=== PATIENT | female | born 2000 | race Caucasian/White ===

== ENCOUNTER 2019-01-22 09:50 | Emergency (ER) | payer OTHER ==
[2019-01-22 11:43] LABS: Albumin 4.5 g/dL (3.2-5.2); Albumin/Globulin Ratio 1.7 (1-3); BUN/Creatinine Ratio 14.1 (8-20); Calcium 9.5 mg/dL (8.6-10.3); Globulin 2.6 g/dL (2-4); Potassium 3.9 mmol/L (3.5-5.0); Total Bilirubin 0.5 mg/dL (0.2-1.0); Total Protein 7.1 g/dL (6.4-8.9)
[2019-01-22] MEDS ORDERED: Hepatitis B Immune Globulin* > 312 UNITS/ML 5 ML VIAL IM ONE (14:46)
[2019-01-22 15:08] VITALS: BP 120/91
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
== END 2019-01-22 15:08 | disposition home or self-care (01) ==
LOC: ED 09:50
DX: T74.21XA Adult sexual abuse, confirmed, initial encounter (principal)
CPT/HCPCS: 36415; 80053; 90371; 96372; 99282

== ENCOUNTER 2019-04-29 03:42 | Emergency (ER) | payer OTHER ==
--- OUTSIDE RECORDS SUMMARY | 2019-04-29 03:53 | XMS REPORT | Continuity of Care Document ---
:2000 External Reference #:[id number] Author Name Morales Griffiths M.D. (transmitted by agent of provider Misti Rodrigues ) Address [address] [place] [id number] Problems Description No Information Available Social History Type Date Description Comments Sex Unknown Tobacco Use Start: Unknown Patient has never smoked Smoking Status Reviewed: 03/25/19 Patient has never smoked Allergies, Adverse Reactions, Alerts Description No Known Drug Allergies Medications Description No Active Medications Immunizations Description No Information Available Vital Signs Date Vital Result Comment 03/25/2019 9:39am Height 64 inches 5'4" Weight 129.00 lb Heart Rate 60 /min BP Systolic Sitting 100 mmHg BP Diastolic Sitting 64 mmHg Respiratory Rate 14 /min Body Temperature 97.7 F BMI (Body Mass Index) 22.1 kg/m2 Results Description No Information Available Procedures Description No Information Available Medical Devices Description No Information Available Encounters Description No Information Available Assessments Date Code Description Provider 03/25/2019 Z11.4 Encounter for screening for human Morales Griffiths M.D. immunodeficiency virus [HIV] Plan of Treatment No Information Available Functional Status Description No Information Available Mental Status Description No Information Available Referrals Description No Information Available
[2019-04-29] MEDS ORDERED: Famotidine TAB* 20 MG PO ONE (04:25)
[2019-04-29] MEDS ORDERED: Dexamethasone TAB* 4 MG PO ONE (04:25)
--- NOTE | 2019-04-29 04:43 | ED ---
Allergic Reaction/Systemic - HPI Summary HPI Summary: Pt is a 19 y/o F presenting to the ED with a chief complaint of a possible allergic reaction. She states around 2230/2300 she began experiencing some pruritus on her chest that eventually spread all over her body. It stopped for about 2 hours, and she tried to take an antihistamine without relief. She fell asleep, woke up with some throat tightening, nasal congestion, sinus soreness, and face pruritus, so she came here. She denies SOB, vomiting, or diarrhea. She reports some slight abd pain and some edema/numbness in her lips. - History of Current Complaint Chief Complaint: EDAllergicReaction Time Seen by Provider: 04/29/19 04:17 Hx Obtained From: Patient Onset/Duration: Gradual Onset, Started hours ago, Still Present Timing: Constant, Lasting Hours Severity Initially: Mild Severity Currently: None Pain Intensity: 0 Pain Scale Used: 0-10 Numeric Location: Diffuse Character: Pruritus Aggravating Factor(s): Nothing Alleviating Factor(s): Nothing Associated Signs And Symptoms: Positive: Abdominal Pain, Throat Tightening. Negative: Difficulty Breathing - Related Hx Possible Reaction To: Unknown - Allergies/Home Medications Allergies/Adverse Reactions: Allergies Allergy/AdvReac Type Severity Reaction Status Date / Time egg Allergy Itching Verified 04/29/19 03:47 Home Medications: Home Medications NK [No Home Medications Reported] 04/29/19 [History Confirmed 04/29/19] PMH/Surg Hx/FS Hx/Imm Hx Previously Healthy: Yes Endocrine/Hematology History: Denies: Hx Diabetes Respiratory History: Reports: Hx Asthma Infectious Disease History: No Infectious Disease History: Denies: Traveled Outside the US in Last 30 Days - Family History Known Family History: Negative: Diabetes - Social History Alcohol Use: Occasionally Hx Substance Use: No Substance Use Type: Reports: None Hx Tobacco Use: No Smoking Status (MU): Never Smoked Tobacco Review of Systems Positive: Other - throat tightening, sinus pain, nasal congestion Negative: Shortness Of Breath Positive: Abdominal Pain. Negative: Vomiting, Diarrhea Positive: Edema Positive: Other - pruritus Positive: Numbness All Other Systems Reviewed And Are Negative: Yes Physical Exam - Summary Physical Exam Summary: Constitutional: Well-developed, Well-nourished, Alert. (-) Distressed Skin: Warm, Dry HENT: Normocephalic; Atraumatic Eyes: Conjunctiva normal Neck: Musculoskeletal ROM normal neck. (-) JVD, (-) Stridor, (-) Tracheal deviation Cardio: Rhythm regular, rate normal, Heart sounds normal; Intact distal pulses; Radial pulses are 2+ and symmetric. (-) Murmur Pulmonary/Chest wall: Effort normal. (-) Respiratory distress, (-) Wheezes, (-) Rales Abd: Soft, (-) tenderness, (-) Distension, (-) Guarding, (-) Rebound Musculoskeletal: (-) Edema Lymph: (-) Cervical adenopathy Neuro: Alert, Oriented x3 Psych: Mood and affect Normal Triage Information Reviewed: Yes Vital Signs On Initial Exam: Initial Vitals Temp Pulse Resp BP Pulse Ox 97.5 F 95 15 143/99 99 04/29/19 03:43 04/29/19 03:43 04/29/19 03:43 04/29/19 03:43 04/29/19 03:43 Vital Signs Reviewed: Yes Procedures - Sedation Patient Received Moderate/Deep Sedation with Procedure: No Diagnostics - Vital Signs Vital Signs Temp Pulse Resp BP Pulse Ox 04/29/19 04:01 69 120/76 99 04/29/19 04:00 79 100 04/29/19 03:43 97.5 F 95 15 143/99 99 - Laboratory Lab Statement: Any lab studies that have been ordered have been reviewed, and results considered in the medical decision making process. Allergic Reaction Course/Dx - Course Course Of Treatment: Patient is here with an allergic reaction. Patient felt like her throat is itchy but overall appeared normal. Patient does not have anaphylaxis per physical exam. Patient was given Decadron and Pepcid. Patient was offered Benadryl but declined. Patient is monitored for one hour. Patient was feeling better and wanted to go home even though she was offered further monitoring. - Diagnoses Provider Diagnoses: Allergic reaction Discharge ED - Sign-Out/Discharge Documenting (check all that apply): Patient Departure - Discharge Plan Condition: Stable Disposition: HOME Patient Education Materials: Anaphylaxis (ED) Referrals: [facility] - Gabo ESPOSITO [[employer], [employer], OTHER] - Additional Instructions: Please follow up with [facility] within the next 1-3 days. Take Benadryl for any itching that you might experience. Return to the emergency department with any new or worsening symptoms, such as difficulty breathing. - Billing Disposition and Condition Condition: STABLE Disposition: Home - Attestation Statements Document Initiated by Scribe: Yes Documenting Scribe: Zuleika Messina Provider For Whom Conoribe is Documenting (Include Credential): Lance Amador MD. Scribe Attestation: Zuleika Booth, scribed for Lance Amador MD. on 04/29/19 at 0545. Scribe Documentation Reviewed: Yes Provider Attestation: The documentation as recorded by the conoribe, Zuleika Messina accurately reflects the service I personally performed and the decisions made by , Lance Amador MD. Status of Scribe Document: Viewed
[2019-04-29 05:38] VITALS: BP 117/83
== END 2019-04-29 05:39 | disposition home or self-care (01) ==
LOC: ED 03:42
DX: T78.40XA Allergy, unspecified, initial encounter (principal); X58.XXXA Exposure to other specified factors, initial encounter; Y92.9 Unspecified place or not applicable
CPT/HCPCS: 99282; A9270-GY; J8540

== ENCOUNTER 2019-05-12 03:54 | Emergency (ER) | payer OTHER ==
--- NOTE | 2019-05-12 04:08 | ED ---
Allergic Reaction/Systemic - HPI Summary HPI Summary: This patient is a 19 year old F presenting to ED with a chief complaint of allergic since yesterday at 2300. Patient was studying and then felt her face itching. Patient went home and took and shower but then her legs and arms started itching. Patient took Aerius and Benadryl, which did not really help. Patient then felt her throat tightening, but she denies SOB. This has happened once before two-three weeks ago and was given steroids. In the ED room, patient reports her skin feels better but her throat still feels tight. Patient does not know what she might be sensitive to, and she did not eat anything new for dinner. Patient denies head cold/other sickness today. She denies abdominal pain , nausea, vomiting. The patient rates the pain 0/10 in severity. Symptoms aggravated by nothing. Symptoms alleviated by nothing. - History of Current Complaint Chief Complaint: EDAllergicReaction Hx Obtained From: Patient Onset/Duration: Gradual Onset, Started hours ago - At 2300 yesterday, Still Present, Worse Since Timing: Constant, Lasting Hours - Since 2300 yesterday Severity Initially: Mild Severity Currently: Mild Pain Intensity: 0 Pain Scale Used: 0-10 Numeric Location: Diffuse Character: Pruritus Aggravating Factor(s): Nothing Alleviating Factor(s): Nothing Associated Signs And Symptoms: Positive: Throat Tightening. Negative: Abdominal Pain, Nausea, Vomiting - Allergies/Home Medications Allergies/Adverse Reactions: Allergies Allergy/AdvReac Type Severity Reaction Status Date / Time egg Allergy Itching Verified 05/12/19 03:57 PMH/Surg Hx/FS Hx/Imm Hx Endocrine/Hematology History: Denies: Hx Diabetes Respiratory History: Reports: Hx Asthma - Surgical History Surgery Procedure, Year, and Place: Denies Infectious Disease History: No Infectious Disease History: Denies: Traveled Outside the US in Last 30 Days - Family History Known Family History: Negative: Diabetes - Social History Alcohol Use: Occasionally Hx Substance Use: No Substance Use Type: Reports: None Hx Tobacco Use: No Smoking Status (MU): Never Smoked Tobacco Review of Systems ENT: Other - Throat tightening Negative: Shortness Of Breath Negative: Abdominal Pain, Vomiting, Nausea Skin: Other - Itching on face, arms, legs All Other Systems Reviewed And Are Negative: Yes Physical Exam - Summary Physical Exam Summary: Appearance: Well-appearing, Well-nourished, lying in bed comfortably Skin: Warm, dry, no obvious rash, no urticaria Eyes: sclera anicteric, no conjunctival pallor ENT: mucous membranes moist, pharynx appears normal, voice is normal, there is no hoarseness Neck: Supple, nontender Respiratory: Clear to auscultation, no signs of respiratory distress, no stridor , lung sounds are clear Cardiovascular: Normal S1, S2. No murmurs. Normal distal pulses in tibial and radial bilaterally. Abdomen: Soft, nontender, normal active bowel sounds present Musculoskeletal: Normal, Strength/ROM Intact Neurological: A&Ox3, awake and alert, mentation is normal, speech is fluent and appropriate Psychiatric: affect is normal, does not appear anxious or depressed Triage Information Reviewed: Yes Vital Signs On Initial Exam: Initial Vitals Temp Pulse Resp BP Pulse Ox 98.3 F 95 15 145/93 95 05/12/19 03:55 05/12/19 03:55 05/12/19 03:55 05/12/19 03:55 05/12/19 03:55 Vital Signs Reviewed: Yes Procedures - Sedation Patient Received Moderate/Deep Sedation with Procedure: No Diagnostics - Vital Signs Vital Signs Temp Pulse Resp BP Pulse Ox 05/12/19 03:55 98.3 F 95 15 145/93 95 - Laboratory Lab Statement: Any lab studies that have been ordered have been reviewed, and results considered in the medical decision making process. Re-Evaluation - Re-Evaluation First Eval Re-Evaluation Time: 05:01 Change: Improved Comment: Patient reports feeling better. Patient will be discharged home with dx of allergic rxn. Patient understands and agrees with this plan. Allergic Reaction Course/Dx - Course Course Of Treatment: This patient is a 19 year old F presenting to ED with a chief complaint of allergic since yesterday at 2300. In the ED course, patient received Decadron. With treatment, patient reports feeling somewhat better. Patient will be discharged home with dx of allergic rxn. Patient understands and agrees with this plan. - Diagnoses Provider Diagnoses: Allergic reaction Discharge ED - Sign-Out/Discharge Documenting (check all that apply): Patient Departure - Discharge - Discharge Plan Condition: Good Disposition: HOME Prescriptions: Dexamethasone TAB* [Decadron TAB*] 4 mg PO DAILY #4 tab Patient Education Materials: Allergies (ED) Referrals: Neri Hart MD [Medical Doctor] - Cirilo Lopez MD [Medical Doctor] - Additional Instructions: Your symptoms are somewhat difficult for me to evaluate, as there is no obvious food or other precipitant and you have not developed the typical objective signs of allergy such as hives, hoarse voice, or abnormal breathing. As this has recurred I think it would be good to make an appointment with an movie actor. They have expertise in these types of problems and can do specialized testing if needed to define your problem better. I have given you a couple of names of appropriate physicians in [place]. - Billing Disposition and Condition Condition: GOOD Disposition: Home - Attestation Statements Document Initiated by Conoribtoo: Yes Documenting Scribe: Elio Villalobos Provider For Whom Bushra is Documenting (Include Credential): León Dennis MD Scribtoo Attestation: I, Elio Villalobos, scribed for León Dennis MD on 05/12/19 at 0634. Scribe Documentation Reviewed: Yes Provider Attestation: The documentation as recorded by the Elio spears accurately reflects the service I personally performed and the decisions made by me, León Dennis MD Status of Scribe Document: Viewed
[2019-05-12] MEDS ORDERED: Dexamethasone TAB* 4 MG PO ONE (04:12)
[2019-05-12 05:07] VITALS: BP 116/86
== END 2019-05-12 05:05 | disposition home or self-care (01) ==
LOC: ED 03:54
DX: T78.40XA Allergy, unspecified, initial encounter (principal); X58.XXXA Exposure to other specified factors, initial encounter
CPT/HCPCS: 99283; J8540